=== PATIENT | male | born 1955 | race African-American/Black ===

== ENCOUNTER → 2017-01-04 | Outpatient (CLI) | payer BC ==
[2017-01-04 17:54] LABS: HEMATOCRIT 45.9 % (42.0-52.0); HEMOGLOBIN 15.9 g/dL (13.5-18.0); MEAN PLATELET VOLUME 10.1 fl (7.4-10.4); RED BLOOD COUNT 5.32 M/mm3 (4.20-5.60); WHITE BLOOD COUNT 5.4 K/mm3 (4.8-10.8)
[2017-01-04 18:27] LABS: ALBUMIN 4.2 g/dL (3.5-5.0); BUN/CREATININE RATIO 16.3 (6.0-26.0); CALCIUM 9.4 mg/dL (8.4-10.2); POTASSIUM 3.7 mmol/L (3.6-5.0); TOTAL BILIRUBIN 0.9 mg/dL (0.2-1.3); TOTAL PROTEIN 7.7 g/dL (6.3-8.2)
== END ==
LOC: LAB 17:03
PROVIDERS: Family Medicine
DX: E13.9 Other specified diabetes mellitus without complications (principal)

== ENCOUNTER 2017-04-08 12:17 | Emergency (ER) | payer BC ==
[2017-04-08 13:16] LABS: HEMATOCRIT 48.5 % (42.0-52.0); HEMOGLOBIN 16.4 g/dL (13.5-18.0); MEAN CELL VOLUME 88 fl (78-100); MEAN CORPUSCULAR HEMOGLOBIN 30 pg (27-31); MEAN CORPUSCULAR HGB CONC 34 g/dL (33-37); MEAN PLATELET VOLUME 10.6 fl (7.4-10.4); PLATELET COUNT 133 K/mm3 (130-400); RED BLOOD COUNT 5.53 M/mm3 (4.20-5.60); RED CELL DISTRIBUTION WIDTH 12.8 % (11.5-14.5); WHITE BLOOD COUNT 4.9 K/mm3 (4.8-10.8)
[2017-04-08] MEDS ORDERED: GLUCOTROL 5M5 MG/TAB PO (13:19)
[2017-04-08] MEDS ORDERED: GLUCOPHAGE1000 MG PO (13:19)
[2017-04-08] MEDS ORDERED: ZESTRIL20 M1 PO (13:20)
[2017-04-08] MEDS ORDERED: ZYLOPRIM 100MG100 MG PO (13:20)
[2017-04-08] MEDS ORDERED: INVOKAMET1 TA3 PO (13:20)
[2017-04-08] MEDS ORDERED: COLCHICINE0.6 M1 PO (13:20)
[2017-04-08] MEDS ORDERED: LOVASTATIN10 M1 PO (13:20)
[2017-04-08] MEDS ORDERED: ASPIR LOW81 MG PO (13:20)
[2017-04-08 13:39] LABS: ALBUMIN 3.9 g/dL (3.5-5.0); BUN/CREATININE RATIO 19.1 (6.0-26.0); CALCIUM 8.9 mg/dL (8.4-10.2); POTASSIUM 4.4 mmol/L (3.6-5.0); TOTAL BILIRUBIN 1.1 mg/dL (0.2-1.3); TOTAL PROTEIN 7.2 g/dL (6.3-8.2)
[2017-04-08 13:44] LABS: TROPONIN-I < 0.03 ng/mL (0.00-0.06)
[2017-04-08 14:12] LABS: LYMPHOCYTE 26 % (20-51); MONOCYTE 4 % (3-10); NEUTROPHILS 70 % (42-75)
[2017-04-08] MEDS ORDERED: PREDNISONE10 MG PO (14:37)
[2017-04-08] MEDS ORDERED: AEROSOL THERAPY1 DEV INH (14:37)
[2017-04-08] MEDS ORDERED: ALBUTEROL2.5 MG/3 M IH (14:37)
[2017-04-08 14:44] VITALS: BP 140/88
== END 2017-04-08 14:42 | disposition home or self-care (01) ==
LOC: ED 12:17
PROVIDERS: Physician Assistant
DX: J20.8 Acute bronchitis due to other specified organisms (principal); E11.9 Type 2 diabetes mellitus without complications; Z79.84 Long term (current) use of oral hypoglycemic drugs; I10 Essential (primary) hypertension; E78.00 Pure hypercholesterolemia, unspecified; M10.9 Gout, unspecified; Z79.82 Long term (current) use of aspirin

== ENCOUNTER → 2020-06-06 | Outpatient (CLI) | payer OTHER ==
[~2020-06-06] MED LIST: AEROSOL THERAPY1 DEV INH; ALBUTEROL2.5 MG/3 M IH; ASPIR LOW81 MG PO; COLCHICINE0.6 M1 PO; GLUCOPHAGE1000 MG PO; GLUCOTROL 5M5 MG/TAB PO; INVOKAMET1 TA3 PO; LOVASTATIN10 M1 PO; PREDNISONE10 MG PO; ZESTRIL20 M1 PO; ZYLOPRIM 100MG100 MG PO
[2020-06-06 18:07] LABS: EOS # 0.2 (0.04-0.40); EOS % 2.7 % (0.0-4.0); HEMATOCRIT 47.3 % (42.0-52.0); LYMPH# 2.4 (1.50-4.00); MEAN CELL VOLUME 89 fl (78-100); MEAN CORPUSCULAR HEMOGLOBIN 30 pg (27-31); MEAN CORPUSCULAR HGB CONC 34 g/dL (33-37); MEAN PLATELET VOLUME 9.9 fl (7.4-10.4); MONO # 0.6 (0.20-0.80); NEU # 2.8 (1.40-6.50); PLATELET COUNT 198 K/mm3 (130-400); RED BLOOD COUNT 5.32 M/mm3 (4.20-5.60)
[2020-06-06 18:09] LABS: ALBUMIN 4.3 g/dL (3.4-4.8); POTASSIUM 4.2 mmol/L (3.5-5.1)
[2020-06-06 18:10] LABS: CALCIUM 9.4 mg/dL (8.3-10.5)
[2020-06-06 18:12] LABS: TOTAL PROTEIN 7.7 g/dL (6.2-8.1)
[2020-06-06 18:14] LABS: TOTAL BILIRUBIN 1.1 mg/dL (0.2-1.2)
== END ==
LOC: LAB 17:29
PROVIDERS: Family Medicine
DX: Z00.00 Encounter for general adult medical examination without abnormal findings (principal); E78.5 Hyperlipidemia, unspecified; E11.9 Type 2 diabetes mellitus without complications

== ENCOUNTER → 2021-03-25 | Outpatient (CLI) | payer SELFPAY | LOC: LAB 18:16 | DX: Z20.822 Contact with and (suspected) exposure to COVID-19 (principal) ==

== ENCOUNTER → 2022-12-10 | Outpatient (CLI) | payer MEDICARE | LOC: AMSURD 18:39 | DX: R07.89 Other chest pain (principal) ==

== ENCOUNTER → 2022-12-24 | Outpatient (CLI) | payer MEDICARE | LOC: RAD 16:39 | DX: R05.9 Cough, unspecified (principal) ==

== ENCOUNTER → 2023-12-05 | Outpatient (CLI) | payer MEDICARE ==
[2023-12-05 10:05] LABS: BASO # 0.02 K/mm3 (0.02-0.10); EOS # 0.18 K/mm3 (0.04-0.40); EOS % 3.3 % (0.0-4.0); HEMATOCRIT 48.5 % (42.0-52.0); HEMOGLOBIN 16.4 g/dL (13.5-18.0); LYMPH# 2.06 K/mm3 (1.50-4.00); MEAN CELL VOLUME 91 fl (78-100); MEAN CORPUSCULAR HEMOGLOBIN 31 pg (27-31); MEAN CORPUSCULAR HGB CONC 34 g/dL (33-37); MEAN PLATELET VOLUME 10.2 fl (7.4-10.4); NEU # 2.82 K/mm3 (1.40-6.50); RED BLOOD COUNT 5.31 M/mm3 (4.20-5.60); RED CELL DISTRIBUTION WIDTH 11.8 % (11.5-14.5); WHITE BLOOD COUNT 5.5 K/mm3 (4.8-10.8)
[2023-12-05 10:12] LABS: ALBUMIN 4.4 g/dL (3.4-4.8)
[2023-12-05 10:13] LABS: CALCIUM 9.4 mg/dL (8.3-10.5)
[2023-12-05 10:14] LABS: TOTAL PROTEIN 7.3 g/dL (6.2-8.1)
[2023-12-05 10:16] LABS: TOTAL BILIRUBIN 0.8 mg/dL (0.2-1.2)
[2023-12-05 10:59] LABS: PLATELET COUNT 154 K/mm3 (130-400)
== END ==
LOC: LAB 09:38
PROVIDERS: Family Medicine
DX: Z12.5 Encounter for screening for malignant neoplasm of prostate (principal); Z12.11 Encounter for screening for malignant neoplasm of colon; E78.5 Hyperlipidemia, unspecified; E11.9 Type 2 diabetes mellitus without complications; I10 Essential (primary) hypertension; M10.9 Gout, unspecified

== ENCOUNTER → 2024-02-01 | Outpatient (CLI) | payer MEDICARE ==
[2024-02-01 19:11] LABS: BASO # 0.01 K/mm3 (0.02-0.10); EOS # 0.23 K/mm3 (0.04-0.40); EOS % 2.8 % (0.0-4.0); HEMATOCRIT 42.7 % (42.0-52.0); HEMOGLOBIN 13.8 g/dL (13.5-18.0); LYMPH# 1.87 K/mm3 (1.50-4.00); MEAN CELL VOLUME 95 fl (78-100); MEAN CORPUSCULAR HEMOGLOBIN 31 pg (27-31); MEAN CORPUSCULAR HGB CONC 32 g/dL (33-37); MEAN PLATELET VOLUME 10.4 fl (7.4-10.4); MONO # 0.56 K/mm3 (0.20-0.80); NEU # 5.41 K/mm3 (1.40-6.50); PLATELET COUNT 156 K/mm3 (130-400); RED BLOOD COUNT 4.52 M/mm3 (4.20-5.60); RED CELL DISTRIBUTION WIDTH 12.4 % (11.5-14.5); WHITE BLOOD COUNT 8.1 K/mm3 (4.8-10.8)
[2024-02-01 19:16] LABS: CALCIUM 9.1 mg/dL (8.3-10.5)
[2024-02-01 19:17] LABS: TOTAL PROTEIN 6.8 g/dL (6.2-8.1)
[2024-02-01 19:19] LABS: TOTAL BILIRUBIN 0.8 mg/dL (0.2-1.2)
== END ==
LOC: LAB 18:52
PROVIDERS: Nurse Practitioner Family
DX: R60.0 Localized edema (principal)

== ENCOUNTER → 2024-03-26 | Outpatient (CLI) | payer MEDICARE ==
[2024-03-26 09:50] LABS: BASO # 0.02 K/mm3 (0.02-0.10); EOS # 0.18 K/mm3 (0.04-0.40); EOS % 2.9 % (0.0-4.0); HEMATOCRIT 45.8 % (42.0-52.0); LYMPH# 1.78 K/mm3 (1.50-4.00); MEAN CELL VOLUME 93 fl (78-100); MEAN CORPUSCULAR HEMOGLOBIN 30 pg (27-31); MEAN CORPUSCULAR HGB CONC 33 g/dL (33-37); MEAN PLATELET VOLUME 10.6 fl (7.4-10.4); MONO # 0.52 K/mm3 (0.20-0.80); NEU # 3.73 K/mm3 (1.40-6.50); PLATELET COUNT 146 K/mm3 (130-400); RED BLOOD COUNT 4.94 M/mm3 (4.20-5.60); WHITE BLOOD COUNT 6.2 K/mm3 (4.8-10.8)
[2024-03-26 09:57] LABS: CALCIUM 9.1 mg/dL (8.3-10.5)
[2024-03-26 09:58] LABS: TOTAL PROTEIN 7.1 g/dL (6.2-8.1)
[2024-03-26 10:28] LABS: TOTAL BILIRUBIN 0.5 mg/dL (0.2-1.2)
== END ==
LOC: LAB 09:16
PROVIDERS: Family Medicine
DX: I10 Essential (primary) hypertension (principal); E11.9 Type 2 diabetes mellitus without complications; M10.9 Gout, unspecified; E78.00 Pure hypercholesterolemia, unspecified

== ENCOUNTER 2024-05-16 11:29 | Emergency (ER) | payer MEDICARE ==
[~2024-05-16] VITALS: Ht 182.9 cm; Wt 90.5 kg
[2024-05-16] MEDS ORDERED: NS 1,000 ML IV SCH (12:00)
[2024-05-16 12:09] LABS: BASO # 0.02 K/mm3 (0.02-0.10); HEMATOCRIT 42.4 % (42.0-52.0); HEMOGLOBIN 14.3 g/dL (13.5-18.0); LYMPH# 1.66 K/mm3 (1.50-4.00); MEAN CELL VOLUME 91 fl (78-100); MEAN CORPUSCULAR HEMOGLOBIN 31 pg (27-31); MEAN CORPUSCULAR HGB CONC 34 g/dL (33-37); MEAN PLATELET VOLUME 9.7 fl (7.4-10.4); MONO # 0.87 K/mm3 (0.20-0.80); NEU # 7.18 K/mm3 (1.40-6.50); PLATELET COUNT 262 K/mm3 (130-400); RED BLOOD COUNT 4.65 M/mm3 (4.20-5.60); RED CELL DISTRIBUTION WIDTH 12.3 % (11.5-14.5)
[2024-05-16 12:15] LABS: ALBUMIN 3.8 g/dL (3.4-4.8)
[2024-05-16 12:17] LABS: CALCIUM 9.4 mg/dL (8.3-10.5)
[2024-05-16 12:18] LABS: TOTAL PROTEIN 7.7 g/dL (6.2-8.1)
[2024-05-16 12:20] LABS: TOTAL BILIRUBIN 0.7 mg/dL (0.2-1.2)
[2024-05-16] MEDS ORDERED: Iohexol 300 - 100 ML VIAL IV ONE (13:03)
[2024-05-16] MEDS ORDERED: NS 100 ML IV SCH (13:03)
[2024-05-16] MEDS ORDERED: cefTRIAXone 1 G in Water For Injection,Sterile 10 ML IV ONE (13:45)
[2024-05-16] MEDS ORDERED: BACTRIM DS TAB1 EACH PO (14:06)
[2024-05-16 14:17] VITALS: BP 157/101
== END 2024-05-16 14:25 | disposition home or self-care (01) ==
LOC: ED 11:29
PROVIDERS: Family Medicine
DX: N39.0 Urinary tract infection, site not specified (principal); K40.90 Unilateral inguinal hernia, without obstruction or gangrene, not specified as recurrent
CPT/HCPCS: J0696; J7030; Q9967

== ENCOUNTER → 2024-05-31 | Outpatient (CLI) | payer MEDICARE ==
[~2024-05-31] MED LIST changes: +BACTRIM DS TAB1 EACH PO
[2024-05-31 15:52] LABS: URINE APPEARANCE CLEAR (CLEAR); URINE COLOR YELLOW (YELLOW)
[2024-05-31 15:53] LABS: PH-URINE 5.5 (5.0 - 8.0); URINE BILIRUBIN NEGATIVE (NEGATIVE); URINE BLOOD NEGATIVE (NEGATIVE); URINE GLUCOSE NEGATIVE (NEGATIVE); URINE KETONE NEGATIVE (NEGATIVE); URINE LEUKOCYTE ESTERASE NEGATIVE (NEGATIVE); URINE NITRATE NEGATIVE (NEGATIVE); URINE PROTEIN(semi-quant) NEGATIVE (NEGATIVE); URINE WBC 0-1 /hpf (0-3)
== END ==
LOC: LAB 15:01
PROVIDERS: Nurse Practitioner
DX: J18.9 Pneumonia, unspecified organism (principal); N40.0 Benign prostatic hyperplasia without lower urinary tract symptoms; Z87.440 Personal history of urinary (tract) infections